=== PATIENT | female | born 1950 | race Caucasian/White ===

== ENCOUNTER 2020-04-10 10:50 | Outpatient (CLI) | payer MEDICARE, MEDICAID ==
[~2020-04-10 10:50] MED LIST: REGADENOSON 0.4 MG/5 ML SYRINGE ONE
== END 2020-04-10 23:59 | disposition home or self-care (01) ==
LOC: CFH 10:50
PROVIDERS: ATTEND Internal Medicine Cardiovascular Disease
DX: I08.3 Combined rheumatic disorders of mitral, aortic and tricuspid valves (principal); I11.0 Hypertensive heart disease with heart failure; I50.9 Heart failure, unspecified; I42.9 Cardiomyopathy, unspecified; I21.19 ST elevation (STEMI) myocardial infarction involving other coronary artery of inferior wall; Z85.3 Personal history of malignant neoplasm of breast
CPT/HCPCS: 78452; 93017; 93306; A9502; J2785

== ENCOUNTER 2020-05-30 07:59 | Outpatient (CLI) | payer MEDICARE, MEDICAID ==
[2020-05-30 13:42] LABS: CHLORIDE 106 mmol/L (98-107)
[2020-05-30 13:51] LABS: ALANINE AMINOTRANSFERASE 17 U/L (12-78); ALBUMIN 3.8 g/dL (3.4-5.0); ALKALINE PHOSPHATASE 83 U/L (45-117); ANION GAP 4 mmol/L (5-15); BILIRUBIN,TOTAL 1.4 mg/dL (0.2-1.0); CALCIUM 9.4 mg/dL (8.5-10.1); CHOL/HDL RATIO 3.4; CHOLESTEROL, TOTAL 254 mg/dL (140-239); CREATININE 1.21 mg/dL (0.55-1.02); HDL CHOL % 30 % (28-40); HDL CHOLESTEROL (DIRECT) 75 mg/dL (40-60); LDL CHOLESTEROL,CALCULATED 153 mg/dL (54-169); TOTAL PROTEIN 7.7 g/dL (6.4-8.2); TRIGLYCERIDES 128 mg/dL (50-200); VLDL CHOLESTEROL 26 mg/dL (0-25)
== END 2020-05-30 23:59 | disposition home or self-care (01) ==
LOC: LAB 07:59
PROVIDERS: ATTEND Internal Medicine Cardiovascular Disease
DX: I10 Essential (primary) hypertension (principal); I42.9 Cardiomyopathy, unspecified; I48.92 Unspecified atrial flutter
CPT/HCPCS: 36415; 80053; 80061

== ENCOUNTER → 2020-09-18 | Outpatient (CLI) | payer MEDICARE, MEDICAID | END | disposition home or self-care (01) | LOC: CFH 13:29 | PROVIDERS: ATTEND Registered Nurse | DX: I08.0 Rheumatic disorders of both mitral and aortic valves (principal); I48.91 Unspecified atrial fibrillation | CPT/HCPCS: 93306 ==

== ENCOUNTER 2020-12-19 08:14 | Day surgery (SDC) | payer MEDICARE, MEDICAID ==
[~2020-12-19] VITALS: Ht 175.3 cm; Wt 102.3 kg
[2020-12-19 08:45] VITALS: BP 122/66
[2020-12-19] MEDS ORDERED: DIPH25CA61 PO (08:59)
[2020-12-19] MEDS ORDERED: OMEP-110 PO (08:59)
[2020-12-19] MEDS ORDERED: ALBU8.5H8 INH (08:59)
[2020-12-19] MEDS ORDERED: DRON400T PO (08:59)
[2020-12-19] MEDS ORDERED: CHOL10003 PO (08:59)
[2020-12-19] MEDS ORDERED: APIX5TAB PO (08:59)
[2020-12-19] MEDS ORDERED: POTA20TA6 PO (08:59)
[2020-12-19] MEDS ORDERED: CARV3.1212 PO (08:59)
[2020-12-19] MEDS ORDERED: FURO20TA3 PO (08:59)
[2020-12-19] MEDS ORDERED: LOSA25TA25 PO (08:59)
[2020-12-19] MEDS ORDERED: DIPHENHYDRAMINE 50 MG/ML, 1ML IVPush ONE (09:00)
[2020-12-19 09:32] LABS: BASOPHILS % (AUTO) 1 % (0-1); EOSINOPHILS % (AUTO) 2 % (1-7); LYMPHOCYTES % (AUTO) 33 % (22-44); MD NO; MEAN CORPUSCULAR HEMOGLOBIN 28.4 pg (27.0-34.8); MEAN CORPUSCULAR HGB CONC 33.3 g/dL (32.4-35.8); MEAN PLATELET VOLUME 6.7 fL (7.4-10.4); MONOCYTES % (AUTO) 9 % (2-9); NEUTROPHILS % (AUTO) 55 % (42-75); PLATELET COUNT 164 x10^3/uL (130-400); RED BLOOD COUNT 4.87 x10^6/uL (3.82-5.3); RED CELL DISTRIBUTION WIDTH 14.3 % (9.6-15.2)
[2020-12-19 09:40] LABS: ANION GAP 7 mmol/L (5-15); CHLORIDE 108 mmol/L (98-107); CREATININE 1.11 mg/dL (0.55-1.02)
[2020-12-19] MEDS ORDERED: DIPHENHYDRAMINE 50 MG/ML, 1ML ONE (09:45)
[2020-12-19] MEDS ORDERED: VERAPAMIL 2.5 MG/ML, 2ML ONE (10:00)
[2020-12-19] MEDS ORDERED: HEPARIN 1,000 UNITS/ML, 10ML ONE (10:00)
[2020-12-19] MEDS ORDERED: FENTANYL PF 100 MCG/2ML ONE (10:00)
[2020-12-19] MEDS ORDERED: LIDOCAINE-MPF 2%, 2ML ONE (10:00)
[2020-12-19] MEDS ORDERED: MIDAZOLAM 1 MG/ML, 2ML ONE (10:00)
[2020-12-19] MEDS ORDERED: IBUPROFEN 200 MG TABLET PO ONE (11:50)
[2020-12-19] MEDS ORDERED: SODIUM CHLORIDE 0.9% 1,000 ML IV SCH (12:00)
== END 2020-12-19 14:30 | disposition home or self-care (01) ==
LOC: CACL 08:14
PROVIDERS: ATTEND Internal Medicine Cardiovascular Disease
DX: I42.8 Other cardiomyopathies (principal); I10 Essential (primary) hypertension; E78.5 Hyperlipidemia, unspecified; I48.0 Paroxysmal atrial fibrillation; E66.9 Obesity, unspecified; Z79.01 Long term (current) use of anticoagulants; Z79.899 Other long term (current) drug therapy; Z68.33 Body mass index [BMI] 33.0-33.9, adult; Z98.890 Other specified postprocedural states
CPT/HCPCS: 36415; 80048; 83880; 85025; 93460; 99156; 99157; C1769; C1894; J1200; J1644; J2250; J3010; Q9967